=== PATIENT | male | born 1960 | race Caucasian/White ===

== ENCOUNTER 2017-04-21 07:11 | Emergency (ER) | payer SELFPAY ==
[~2017-04-21] VITALS: Ht 188 cm; Wt 100.0 kg
[2017-04-21] MEDS ORDERED: MULTI VIT PO (07:26)
[2017-04-21] MEDS ORDERED: [UNRECOGNIZED DRUG - OTHER] PO (07:27)
[2017-04-21 07:55] LABS: HEMOGLOBIN 16.9 g/dl (14.0-18.0); IMMATURE GRANULOCYTES 0.4 % (0.0-1.0); MEAN CELL VOLUME 80.6 fL CALC (80.0-100.0); MEAN CORPUSCULAR HGB 26.7 pG CALC (26.0-32.0); MEAN CORPUSCULAR HGB CONC 33.1 g/L CALC (32.0-36.0); NEUT# 9.14 thou/uL (1.82-7.42); RED BLOOD COUNT 6.33 mill/uL (4.70-6.10); RED CELL DISTRI WIDTH 13.3 % (11.5-15.5)
[2017-04-21 08:06] LABS: ALBUMIN 4.8 g/dL (3.2-5.0); ALKALINE PHOSPHATASE 156 u/l (38-126); AMYLASE 66 u/l (30-110); ANION GAP 22 (6-22 (CALC)); BILIRUBIN, TOTAL 1.3 mg/dL (0.0-1.4); BUN 20 mg/dL (9-20); BUN/CREATININE RATIO 20 (12-20 (CALC)); CALCIUM 10.2 mg/dL (8.4-10.2); CARBON DIOXIDE 18 mmol/l (22-30); CHLORIDE 106 mmol/l (95-108); GFR > 60 ML/MIN (>=60 (CALC)); GFR FOR AFR.AMER. > 60 ML/MIN (>=60 (CALC)); GLUCOSE 125 mg/dL (75-110); LIPASE 69 u/l (23-300); POTASSIUM 3.7 mmol/l (3.5-5.1); SGOT/AST 49 u/l (17-59); SGPT/ALT 55 u/l (21-72); SODIUM 143 mmol/l (137-146); TOTAL PROTEIN 7.6 g/dL (6.3-8.2)
[2017-04-21 09:55] LABS: URINE BILIRUBIN - DIPSTICK SMALL (NEGATIVE); URINE BLOOD DIPSTICK LARGE (NEGATIVE); URINE CLARITY CLOUDY; URINE COLOR DK. YELLOW; URINE GLUCOSE - DIPSTICK NEGATIVE (NEGATIVE); URINE KETONE 40 mg/dL (NEGATIVE); URINE LEUK ESTERASE NEGATIVE (NEGATIVE); URINE NITRITE - DIPSTICK NEGATIVE (Negative); URINE PH 7.5 (4.5-8.0); URINE PROTEIN - DIPSTICK TRACE mg/dL (NEG-TRACE)
[2017-04-21 09:56] LABS: URINE RBC 25-50 RBC/hpf (0-5)
[2017-04-21] MEDS ORDERED: NORCO1 TA1 PO (10:13)
[2017-04-21 10:30] VITALS: BP 113/58
== END 2017-04-21 10:45 | disposition home or self-care (01) | DRG 694 ==
LOC: ED 07:11
PROVIDERS: Emergency Medicine
DX: N13.2 Hydronephrosis with renal and ureteral calculous obstruction (principal); K80.20 Calculus of gallbladder without cholecystitis without obstruction; R94.31 Abnormal electrocardiogram [ECG] [EKG]